=== PATIENT | male | born 1985 | race Caucasian/White ===

== ENCOUNTER 2019-01-31 09:30 | Emergency (ER) | payer MEDICAID ==
[~2019-01-31] VITALS: Ht 172.7 cm; Wt 79.0 kg
[2019-01-31 09:36] VITALS: BP 138/96
[2019-01-31] MEDS ORDERED: HYDROcodone/acetaminophen 5mg/325mg tablet PO ONE (10:45)
== END 2019-01-31 11:10 | disposition home or self-care (01) ==
LOC: ER 09:31
DX: S93.602A Unspecified sprain of left foot, initial encounter (principal); W22.8XXA Striking against or struck by other objects, initial encounter; Y93.89 Activity, other specified; Y92.89 Other specified places as the place of occurrence of the external cause; Y99.8 Other external cause status
CPT/HCPCS: 29515; 73630; 99283

== ENCOUNTER 2022-12-13 03:23 | Inpatient (IN) | payer MEDICAID ==
[~2022-12-13] VITALS: Ht 172.7 cm; Wt 60.0 kg
[2022-12-13] MEDS ORDERED: azithromycin/NS 500mg/250ml 250 ML IV ONE (04:25)
[2022-12-13] MEDS ORDERED: CefTRIAXone/D5W-Rocephin 1gm 50 ML IV ONE (04:25)
[2022-12-13 04:35] LABS: BASOPHILS # (AUTO) 0.1 X10'3 (0-0.2); BASOPHILS % (AUTO) 0.4 % (0-1); EOSINOPHILS % (AUTO) 0.2 % (0-6); HEMATOCRIT 42.2 % (42.0-52.0); HEMOGLOBIN 13.9 g/dl (14.0-17.9); LYMPHOCYTES # (AUTO) 0.8 X10'3 (1.1-4.8); LYMPHOCYTES % (AUTO) 4.9 % (21-51); MEAN CORPUSCULAR HEMOGLOBIN 30.7 PG (27.0-31.0); MEAN CORPUSCULAR HGB CONC 32.8 g/dL (33.0-36.5); MEAN CORPUSCULAR VOLUME 93.5 FL (78-98); MEAN PLATELET VOLUME 7.3 FL (7.4-10.4); MONOCYTES # (AUTO) 1.5 X10'3 (0-0.9); MONOCYTES % (AUTO) 8.5 % (2-12); NEUTROPHILS # (AUTO) 14.9 X10'3 (1.8-7.7); PLATELET COUNT 246 X10'3 (140-440); RED BLOOD COUNT 4.52 X10'6 (4.70-6.10); RED CELL DISTRIBUTION WIDTH 15.3 % (11.5-14.5); WHITE BLOOD COUNT 17.4 X10'3 (4.5-11.0)
[2022-12-13] MEDS ORDERED: guaiFENesin ER 600mg tablet PO ONE (04:50)
[2022-12-13 04:53] LABS: ALANINE AMINOTRANSFERASE 73 U/L (12-78); ALBUMIN/GLOBULIN RATIO 0.5 (1.1-1.5); ALKALINE PHOSPHATASE 506 IU/L (46-116); ANION GAP 6 (8-16); ASPARTATE AMINO TRANSFERASE 56 U/L (10-37); BILIRUBIN,TOTAL 0.8 MG/DL (0.1-1.0); BLOOD UREA NITROGEN 9 MG/DL (7-18); BUN/CREATININE RATIO 10.6 (5.4-32.0); CALCIUM 9.3 MG/DL (8.5-10.1); CHLORIDE 98 MMOL/L (99-107); CREATININE 0.85 MG/DL (0.60-1.10); GLUCOSE 126 MG/DL (70-104); POTASSIUM 3.7 MMOL/L (3.5-5.1); SODIUM 133 MMOL/L (135-145); TOTAL CARBON DIOXIDE 28.7 MMOL/L (24-32); TOTAL PROTEIN 8.6 G/DL (6.4-8.2); eGFR > 90 ML/MIN
[2022-12-13] MEDS ORDERED: magnesium 4gm in 100ml NS 100 ML IV PRN (05:25)
[2022-12-13] MEDS ORDERED: ondansetron/PF 4mg/2ml inj IV PRN (05:25)
[2022-12-13] MEDS ORDERED: magnesium Cl slow-release 64mg tablet PO PRN (05:25)
[2022-12-13] MEDS ORDERED: mag hydrox/Alum hydrox/simeth 30ml oral suspension PO PRN (05:25)
[2022-12-13] MEDS ORDERED: potassium Cl 20 mEq SR tablet PO PRN ×2 (05:25)
[2022-12-13] MEDS ORDERED: potassium Cl 40MEQ/1/2NS 520ml 520 ML IV PRN (05:25)
[2022-12-13] MEDS ORDERED: ipratropium/albuterol 3ml nebule NEB PRN (05:25)
[2022-12-13] MEDS ORDERED: acetaminophen 325mg tablet PO PRN (05:25)
[2022-12-13] MEDS ORDERED: magnesium hydroxide 30ml (MOM) UD suspension PO PRN (05:25)
[2022-12-13] MEDS ORDERED: PERFLUTREN PROTEIN-A MICROSPHR (Optison) 0.22 MG/ML 3ML VIAL IV ONE (06:10)
[2022-12-13] MEDS ORDERED: enoxaparin 40mg/0.4ml syringe SUBCUT SCH (08:00)
[2022-12-13] MEDS: docusate sod 100mg capsule PO SCH ×2 (08:00→22:03)
[2022-12-13] MEDS ORDERED: methylPREDNISolone sod succ 125mg/2ml vial IV SCH (08:00)
[2022-12-13] MEDS: ipratropium/albuterol 3ml nebule NEB SCH ×3 (08:02→20:17)
[2022-12-13 08:37] LABS: D-DIMER 0.56 MG/L FEU (0-0.50)
--- NOTE | 2022-12-13 08:48 | NUR ---
DR ALAMO AT BEDSIDE ALONG WITH ALTERATION TAILOR.
[2022-12-13 09:15] LABS: CLARITY,URINE CLEAR (Clear); COLOR,URINE YELLOW (Yellow); GLUCOSE, URINE NEGATIVE (Neg); KETONES,URINE NEGATIVE (Neg); LEUKOCYTE ESTERASE ,URINE NEGATIVE (Neg); NITRITES, URINE NEGATIVE (Neg); OCCULT BLOOD,URINE NEGATIVE (Neg); PH,URINE 7.5 (4.8-8.0); PROTEIN,URINE NEGATIVE (Neg); UROBILINOGEN,URINE 0.2 E.U/dL (0.2-1.0)
[2022-12-13 09:19] LABS: UA COLLECTION TYPE VOIDED
--- NOTE | 2022-12-13 09:50 | NUR ---
Repeat EKG obtained by Tom due to rhythm appearing abnormal on screen. EKG showed sinus tachycardia. Pt's current temp 100.3F, and states pain decreased, but unable to give a number. Pt laying in bed w/ eyes closed, w/ significant other at bedside.
--- NOTE | 2022-12-13 10:35 | NUR ---
Pt sleeping. Will recheck temp when he awakens.
--- NOTE | 2022-12-13 10:52 | NUR ---
880ml dk urine
[2022-12-13 13:15] VITALS: BP 92/57
[2022-12-13] MEDS ORDERED: iohexol 350MG/ML 100ml bottle IV ONE (14:44)
[2022-12-13 15:00] VITALS: BP 91/60
[2022-12-13] MEDS ORDERED: levoFLOXACIN-Levaquin 750MG/D5 150 ML IV SCH (15:00)
[2022-12-13] MEDS: furosemide 20 MG/2 ML vial IV SCH ×2 (15:17→20:00)
[2022-12-13] MEDS ORDERED: TIOT18CA3 INH (16:10)
[2022-12-13] MEDS ORDERED: IBUP-860 PO (16:10)
[2022-12-13] MEDS ORDERED: BUDE10.27 IH (16:10)
[2022-12-13] MEDS ORDERED: ALBU6.7H14 INH (16:11)
--- NOTE | 2022-12-13 18:00 | NUR ---
Patient in room PCU 3028. I have received report from MADELIN Kelly and had the opportunity to ask questions and assume patient care.
[2022-12-13 22:00] VITALS: BP 96/60
--- NOTE | 2022-12-13 23:07 | NUR ---
Pt came to nurse's station and requested to leave AMA. Multiple nurses attempted to convince him to stay for treatment but he stated he will go to his PCP tomorrow. Dr. Galeana notified. Pt signed AMA form and left. Tele box #[id number] returned to Tele War Room.
[2022-12-14] MEDS ORDERED: CefTRIAXone/D5W-Rocephin 1gm 50 ML IV SCH (08:00)
[2022-12-14 15:13] LABS: HBSAG SCREEN Negative (Negative); HEP A AB, IGM Negative (Negative)
[2022-12-20 12:08] LABS: HEPATITIS C ANTIBODY Negative
== END 2022-12-13 23:41 | disposition left against medical advice (07) | DRG 720 ==
LOC: ER 03:23 → ED HOLD 05:29 → PCU 3S 11:17
PROVIDERS: ADMIT Family Medicine; ATTEND Internal Medicine
PROC: B32T1ZZ Computerized Tomography (CT Scan) of Left Pulmonary Artery using Low Osmolar Contrast (ICD-10-PCS; principal; 2022-12-13)
PROC: B3201ZZ Computerized Tomography (CT Scan) of Thoracic Aorta using Low Osmolar Contrast (ICD-10-PCS; 2022-12-13)
PROC: B32S1ZZ Computerized Tomography (CT Scan) of Right Pulmonary Artery using Low Osmolar Contrast (ICD-10-PCS; 2022-12-13)
DX: A41.9 Sepsis, unspecified organism (principal); J18.9 Pneumonia, unspecified organism; E87.1 Hypo-osmolality and hyponatremia; Z20.822 Contact with and (suspected) exposure to COVID-19; Z53.29 Procedure and treatment not carried out because of patient's decision for other reasons; R74.01 Elevation of levels of liver transaminase levels; Z80.6 Family history of leukemia; Z85.6 Personal history of leukemia; Z88.1 Allergy status to other antibiotic agents; Z91.199 Patient's noncompliance with other medical treatment and regimen due to unspecified reason
CPT/HCPCS: 36415; 71045; 71275; 76700; 80053; 80074; 81003; 83605; 83735; 83880; 84145; 85025; 85379; 87040; 87077; 87186; 87502; 87503; 87635; 93005; 93306; 94640; 94760; 96365; 99285; A4620; G0378; J0696; J1650; J1940; J1956; J2930; J3490; J7030; J7040; Q9967